=== PATIENT | female | born 1960 | race Caucasian/White ===

== ENCOUNTER → 2017-10-13 | Outpatient (CLI) | payer OTHER ==
[~2017-10-13] MED LIST: FLONASE ALLERG9.9 ML NAS; LISINOPRIL5 MG PO; MOBIC15 MG PO; MUCINEX1200 M1 PO; NAPROSYN500 MG PO; PREDNISONE10 MG PO; ROBAXIN750 MG PO; ROBITUSSIN DM 105 ML PO; SYNTHROID,LEV200 MCG PO; VENTOLIN H0.09 MG/AC INH
== END | disposition home or self-care (01) ==
LOC: MAMMO 12:39
DX: Z12.31 Encounter for screening mammogram for malignant neoplasm of breast (principal)

== ENCOUNTER → 2017-10-14 | Outpatient (CLI) | payer OTHER | END | disposition home or self-care (01) | LOC: US 04:02 | DX: M79.604 Pain in right leg (principal); M79.605 Pain in left leg; I10 Essential (primary) hypertension; R20.0 Anesthesia of skin ==

== ENCOUNTER → 2018-04-25 | Outpatient (CLI) | payer OTHER | END | disposition home or self-care (01) | LOC: CT 14:53 | DX: I71.4 Abdominal aortic aneurysm, without rupture (principal); K76.0 Fatty (change of) liver, not elsewhere classified; I70.0 Atherosclerosis of aorta; N83.8 Other noninflammatory disorders of ovary, fallopian tube and broad ligament ==

== ENCOUNTER 2019-12-02 13:06 | Emergency (ER) | payer OTHER ==
[~2019-12-02] VITALS: Ht 165.1 cm; Wt 136.1 kg
== END 2019-12-02 14:59 | disposition home or self-care (01) ==
LOC: ED 13:06
DX: S01.01XA Laceration without foreign body of scalp, initial encounter (principal); F17.200 Nicotine dependence, unspecified, uncomplicated; Z79.899 Other long term (current) drug therapy; W01.0XXA Fall on same level from slipping, tripping and stumbling without subsequent striking against object, initial encounter; Y93.89 Activity, other specified; Y92.89 Other specified places as the place of occurrence of the external cause; Y99.8 Other external cause status

== ENCOUNTER → 2020-05-02 | Outpatient (CLI) | payer OTHER ==
[2020-05-02 15:11] LABS: BASO # 0.1 10*3/uL (0.0-0.1); BASO % 0.8 % (0.0-1.0); EOS # 0.2 10*3/uL (0.0-0.4); EOS % 2.1 % (1.0-4.0); HEMATOCRIT 52.4 % (37.0-47.0); LYMPH # 2.4 10*3/uL (1.3-4.4); LYMPH % 27.8 % (27.0-41.0); MEAN CORPUSCULAR HGB 32.9 pg (27.0-31.0); MEAN CORPUSCULAR HGB CONC 32.6 g/dl (33.0-37.0); MEAN PLATELET VOLUME 10.2 fl (9.6-12.3); MONO # 0.7 10*3/uL (0.1-1.0); MONO % 8.4 % (3.0-9.0); NEUT # 5.2 10*3/uL (2.3-7.9); NEUT % 60.3 % (47.0-73.0); PLATELET COUNT AUTOMATED 236 10*3/uL (130-400); RED BLOOD COUNT 5.19 10*6/uL (4.10-5.10); RED CELL DISTRI WIDTH 13.1 % (0-14.5); RETICULOCYTE % 1.98 % (0.50-2.50); WHITE BLOOD COUNT 8.6 10*3/uL (4.8-10.8)
[2020-05-02 15:13] LABS: BILIRUBIN Negative (Negative); BLOOD Negative (Negative); CLARITY Clear (Clear); COLOR Yellow (Yellow); GLUCOSE Negative (Negative); KETONE Negative (Negative); LEUKO ESTERASE 1+ (Negative); NITRITE Negative (Negative); PH 5.5 (4.5-8.0); SPECIFIC GRAVITY <= 1.005 (1.001-1.030); UROBILINOGEN 0.2 E.U./dl (0.0-1.0)
[2020-05-02 15:21] LABS: BACTERIA 1+; RBC 0-2 rbc/hpf (0-2)
[2020-05-02 15:37] LABS: ALBUMIN 3.8 gm/dl (3.1-4.5); ALKALINE PHOSPHATASE 101 U/L (45-117); BUN 16 mg/dl (7-24); CHLORIDE 103 mmol/L (98-107); CHOLESTEROL 174 mg/dL (<200); CPK 155 U/L (26-192); CREATININE 0.77 mg/dL (0.55-1.02); GAMMA GLUTAMYL TRANSPEPTIDASE 16 U/L (5-55); HDL CHOLESTEROL 38 mg/dl (40-60); IRON 71 ug/dL (50-170); LDL CHOLESTEROL 106 mg/dL (9-159); POTASSIUM 3.8 mmol/L (3.5-5.1); SGOT/AST 9 IU/L (3-35); SGPT/ALT 19 U/L (12-78); SODIUM 140 mmol/L (136-145); THYROXINE (T4) TOTAL 11.8 ug/dl (4.8-13.9); TOTAL IRON BINDING CAPACITY 381 ug/dl (250-450); TOTAL PROTEIN 7.3 gm/dL (6.4-8.2); TRIGLYCERIDES 148 mg/dl (<150); VLDL CHOLESTEROL 30 mg/dL (6-40)
[2020-05-02 15:43] LABS: T3 UPTAKE 34 % (31-39)
[2020-05-02 16:20] LABS: VITAMIN D, 25-HYDROXY 36.1 ng/mL (30-100)
[2020-05-02 16:21] LABS: FERRITIN 127.2 ng/mL (10.0-291.0)
== END | disposition home or self-care (01) ==
LOC: LAB 14:45
PROVIDERS: ATTEND Family Medicine
DX: E55.9 Vitamin D deficiency, unspecified (principal); R79.89 Other specified abnormal findings of blood chemistry; R53.83 Other fatigue

== ENCOUNTER → 2020-10-29 | Outpatient (CLI) | payer OTHER ==
[2020-10-29 10:13] LABS: BASO # 0.1 10*3/uL (0.0-0.1); BASO % 0.9 % (0.0-1.0); EOS # 0.2 10*3/uL (0.0-0.4); EOS % 2.5 % (1.0-4.0); HEMATOCRIT 52.6 % (37.0-47.0); LYMPH # 2.1 10*3/uL (1.3-4.4); MEAN CELL VOLUME 101.7 fl (81.0-99.0); MEAN CORPUSCULAR HGB 33.7 pg (27.0-31.0); MEAN CORPUSCULAR HGB CONC 33.1 g/dl (33.0-37.0); MEAN PLATELET VOLUME 10.3 fl (9.6-12.3); MONO # 0.6 10*3/uL (0.1-1.0); MONO % 7.5 % (3.0-9.0); NEUT # 4.9 10*3/uL (2.3-7.9); NEUT % 62.6 % (47.0-73.0); PLATELET COUNT AUTOMATED 192 10*3/uL (130-400); RED BLOOD COUNT 5.17 10*6/uL (4.10-5.10); RED CELL DISTRI WIDTH 13.4 % (0-14.5); WHITE BLOOD COUNT 7.9 10*3/uL (4.8-10.8)
[2020-10-29 10:30] LABS: BILIRUBIN Negative (Negative); BLOOD Negative (Negative); CLARITY Clear (Clear); COLOR Yellow (Yellow); GLUCOSE Negative (Negative); KETONE Negative (Negative); LEUKO ESTERASE Negative (Negative); NITRITE Negative (Negative); SPECIFIC GRAVITY <= 1.005 (1.001-1.030); UROBILINOGEN 0.2 E.U./dl (0.0-1.0)
[2020-10-29 13:00] LABS: CHLORIDE 102 mmol/L (98-107); POTASSIUM 3.8 mmol/L (3.5-5.1); SODIUM 139 mmol/L (136-145)
[2020-10-29 13:08] LABS: BACTERIA TRACE; MUCOUS TRACE; WBC 0-2 wbc/hpf (0-5)
[2020-10-29 13:17] LABS: ALBUMIN 3.7 gm/dl (3.1-4.5); ALKALINE PHOSPHATASE 111 U/L (45-117); BUN 11 mg/dl (7-24); CHOLESTEROL 182 mg/dL (<200); CREATININE 0.67 mg/dL (0.55-1.02); GAMMA GLUTAMYL TRANSPEPTIDASE 11 U/L (5-55); IRON 120 ug/dL (50-170); LDL CHOLESTEROL 102 mg/dL (9-159); SGOT/AST 12 IU/L (3-35); SGPT/ALT 17 U/L (12-78); T3 UPTAKE 33 % (31-39); THYROXINE (T4) TOTAL 12.3 ug/dl (4.8-13.9); TOTAL IRON BINDING CAPACITY 382 ug/dl (250-450); TOTAL PROTEIN 7.3 gm/dL (6.4-8.2); TRIGLYCERIDES 232 mg/dl (<150)
== END | disposition home or self-care (01) ==
LOC: LAB 09:19
PROVIDERS: ATTEND Family Medicine
DX: M51.36 Other intervertebral disc degeneration, lumbar region (principal); E78.5 Hyperlipidemia, unspecified; R79.89 Other specified abnormal findings of blood chemistry; R53.83 Other fatigue; M19.90 Unspecified osteoarthritis, unspecified site; R74.8 Abnormal levels of other serum enzymes; M85.88 Other specified disorders of bone density and structure, other site

== ENCOUNTER → 2020-11-14 | Outpatient (CLI) | payer OTHER | END | disposition home or self-care (01) | LOC: RAD 08:25 | PROVIDERS: ATTEND Family Medicine | DX: M43.16 Spondylolisthesis, lumbar region (principal); M48.061 Spinal stenosis, lumbar region without neurogenic claudication; M53.86 Other specified dorsopathies, lumbar region; M51.37 Other intervertebral disc degeneration, lumbosacral region ==

== ENCOUNTER → 2020-11-17 | Outpatient (CLI) | payer OTHER | END | disposition home or self-care (01) | LOC: MRI 00:24 | PROVIDERS: ATTEND Family Medicine | DX: M16.0 Bilateral primary osteoarthritis of hip (principal); M25.452 Effusion, left hip; M25.451 Effusion, right hip; M71.351 Other bursal cyst, right hip; M71.352 Other bursal cyst, left hip ==

== ENCOUNTER → 2021-08-11 | Outpatient (CLI) | payer OTHER ==
[2021-08-11 09:41] LABS: BASO # 0.1 10*3/uL (0.0-0.1); BASO % 1.1 % (0.0-1.0); EOS # 0.1 10*3/uL (0.0-0.4); EOS % 1.3 % (1.0-4.0); HEMATOCRIT 48.3 % (37.0-47.0); LYMPH % 26.3 % (27.0-41.0); MEAN CELL VOLUME 107.1 fl (81.0-99.0); MEAN CORPUSCULAR HGB 34.6 pg (27.0-31.0); MEAN CORPUSCULAR HGB CONC 32.3 g/dl (33.0-37.0); MONO # 0.6 10*3/uL (0.1-1.0); MONO % 8.5 % (3.0-9.0); NEUT # 4.7 10*3/uL (2.3-7.9); NEUT % 61.9 % (47.0-73.0); NUCLEATED RED BLOOD CELL 0.1 10*3/uL (0.0-0.0); NUCLEATED RED BLOOD CELL 0.8 % (0.0-0.0); PLATELET COUNT AUTOMATED 209 10*3/uL (130-400); RED BLOOD COUNT 4.51 10*6/uL (4.10-5.10); RED CELL DISTRI WIDTH 15.2 % (0-14.5); RETICULOCYTE % 4.24 % (0.50-2.50); WHITE BLOOD COUNT 7.5 10*3/uL (4.8-10.8)
[2021-08-11 09:44] LABS: BILIRUBIN Negative (Negative); BLOOD Negative (Negative); CLARITY Clear (Clear); COLOR Yellow (Yellow); GLUCOSE Negative (Negative); KETONE Negative (Negative); LEUKO ESTERASE 2+ (Negative); NITRITE Negative (Negative); PH 6.5 (4.5-8.0); SPECIFIC GRAVITY <= 1.005 (1.001-1.030); UROBILINOGEN 0.2 E.U./dl (0.0-1.0)
[2021-08-11 10:32] LABS: ALKALINE PHOSPHATASE 118 U/L (45-117); BUN 19 mg/dl (7-24); CHLORIDE 108 mmol/L (98-107); CHOLESTEROL 155 mg/dL (<200); CREATININE 0.69 mg/dL (0.55-1.02); GAMMA GLUTAMYL TRANSPEPTIDASE 10 U/L (5-55); IRON 74 ug/dL (50-170); LDL CHOLESTEROL 104 mg/dL (9-159); POTASSIUM 4.7 mmol/L (3.5-5.1); SGOT/AST 18 IU/L (3-35); SGPT/ALT 28 U/L (12-78); SODIUM 141 mmol/L (136-145); T3 UPTAKE 34 % (31-39); THYROXINE (T4) TOTAL 13.7 ug/dl (4.8-13.9); TOTAL PROTEIN 7.1 gm/dL (6.4-8.2); TRIGLYCERIDES 90 mg/dl (<150)
[2021-08-11 10:39] LABS: TOTAL IRON BINDING CAPACITY 412 ug/dl (250-450)
[2021-08-11 11:04] LABS: BACTERIA 1+; WBC 21-30 wbc/hpf (0-5)
== END | disposition home or self-care (01) ==
LOC: LAB 09:19
PROVIDERS: ATTEND Family Medicine
DX: J43.9 Emphysema, unspecified (principal); R79.89 Other specified abnormal findings of blood chemistry; R53.83 Other fatigue; E11.9 Type 2 diabetes mellitus without complications; E55.9 Vitamin D deficiency, unspecified; E78.5 Hyperlipidemia, unspecified

== ENCOUNTER → 2021-08-14 | Outpatient (CLI) | payer OTHER | LOC: US 10:44 | PROVIDERS: ATTEND Family Medicine | DX: I71.4 Abdominal aortic aneurysm, without rupture (principal) ==

== ENCOUNTER → 2021-10-16 | Outpatient (CLI) | payer OTHER | END | disposition home or self-care (01) | LOC: US 10:05 | PROVIDERS: ATTEND Internal Medicine Cardiovascular Disease | DX: O24.111 Pre-existing type 2 diabetes mellitus, in pregnancy, first trimester (principal); I70.203 Unspecified atherosclerosis of native arteries of extremities, bilateral legs; Z3A.00 Weeks of gestation of pregnancy not specified ==

== ENCOUNTER → 2021-10-21 | Outpatient (CLI) | payer OTHER | END | disposition home or self-care (01) | LOC: CARD 01:35 | PROVIDERS: ATTEND Internal Medicine Cardiovascular Disease | DX: R06.02 Shortness of breath (principal) ==

== ENCOUNTER → 2021-12-29 | Outpatient (CLI) | payer MEDICAID ==
[2021-12-29 11:44] LABS: BASO # 0.1 10*3/uL (0.0-0.1); BILIRUBIN Negative (Negative); BLOOD Negative (Negative); CLARITY Clear (Clear); COLOR Yellow (Yellow); EOS # 0.2 10*3/uL (0.0-0.4); EOS % 2.5 % (1.0-4.0); GLUCOSE Negative (Negative); HEMATOCRIT 52.1 % (37.0-47.0); KETONE Negative (Negative); LEUKO ESTERASE Negative (Negative); LYMPH # 2.4 10*3/uL (1.3-4.4); MEAN CELL VOLUME 101.2 fl (81.0-99.0); MEAN CORPUSCULAR HGB CONC 33.6 g/dl (33.0-37.0); MEAN PLATELET VOLUME 10.2 fl (9.6-12.3); MONO # 0.7 10*3/uL (0.1-1.0); MONO % 8.1 % (3.0-9.0); NEUT # 4.9 10*3/uL (2.3-7.9); NEUT % 58.8 % (47.0-73.0); NITRITE Negative (Negative); PH 5.5 (4.5-8.0); PLATELET COUNT AUTOMATED 225 10*3/uL (130-400); RED BLOOD COUNT 5.15 10*6/uL (4.10-5.10); RED CELL DISTRI WIDTH 13.3 % (0-14.5); RETICULOCYTE % 1.99 % (0.50-2.50); SPECIFIC GRAVITY <= 1.005 (1.001-1.030); UROBILINOGEN 0.2 E.U./dl (0.0-1.0); WHITE BLOOD COUNT 8.4 10*3/uL (4.8-10.8)
[2021-12-29 12:08] LABS: ALKALINE PHOSPHATASE 127 U/L (45-117); BUN 16 mg/dl (7-24); CHLORIDE 106 mmol/L (98-107); CHOLESTEROL 197 mg/dL (<200); CREATININE 0.74 mg/dL (0.55-1.02); GAMMA GLUTAMYL TRANSPEPTIDASE 12 U/L (5-55); IRON 108 ug/dL (50-170); LDL CHOLESTEROL 129 mg/dL (9-159); POTASSIUM 4.6 mmol/L (3.5-5.1); SGOT/AST 13 IU/L (3-35); SGPT/ALT 21 U/L (12-78); SODIUM 138 mmol/L (136-145); TOTAL PROTEIN 7.7 gm/dL (6.4-8.2); TRIGLYCERIDES 161 mg/dl (<150)
[2021-12-29 12:39] LABS: RBC 0-2 rbc/hpf (0-2)
== END | disposition home or self-care (01) ==
LOC: LAB 11:06
PROVIDERS: ATTEND Family Medicine
DX: E78.5 Hyperlipidemia, unspecified (principal); E55.9 Vitamin D deficiency, unspecified; R79.89 Other specified abnormal findings of blood chemistry; R53.83 Other fatigue

== ENCOUNTER → 2022-06-15 | Outpatient (CLI) | payer OTHER ==
[2022-06-15 10:24] LABS: BASO # 0.1 10*3/uL (0.0-0.1); EOS # 0.2 10*3/uL (0.0-0.4); EOS % 2.2 % (1.0-4.0); HEMATOCRIT 53.5 % (37.0-47.0); LYMPH # 2.1 10*3/uL (1.3-4.4); LYMPH % 31.1 % (27.0-41.0); MEAN CELL VOLUME 104.3 fl (81.0-99.0); MEAN CORPUSCULAR HGB 33.3 pg (27.0-31.0); MEAN PLATELET VOLUME 9.9 fl (9.6-12.3); MONO # 0.5 10*3/uL (0.1-1.0); MONO % 6.7 % (3.0-9.0); NEUT % 58.4 % (47.0-73.0); PLATELET COUNT AUTOMATED 213 10*3/uL (130-400); RED BLOOD COUNT 5.13 10*6/uL (4.10-5.10); RETICULOCYTE % 2.46 % (0.50-2.50); WHITE BLOOD COUNT 6.8 10*3/uL (4.8-10.8)
[2022-06-15 10:25] LABS: BILIRUBIN Negative (Negative); BLOOD Negative (Negative); CLARITY Clear (Clear); COLOR Yellow (Yellow); GLUCOSE Negative (Negative); KETONE Negative (Negative); LEUKO ESTERASE Negative (Negative); NITRITE Negative (Negative); SPECIFIC GRAVITY <= 1.005 (1.001-1.030); UROBILINOGEN 0.2 E.U./dl (0.0-1.0)
[2022-06-15 10:41] LABS: BACTERIA 1+
[2022-06-15 10:42] LABS: ALKALINE PHOSPHATASE 118 U/L (46-116); BUN 15 mg/dl (9-23); CHLORIDE 105 mmol/L (98-107); CHOLESTEROL 204 mg/dL (<200); GAMMA GLUTAMYL TRANSPEPTIDASE 15 U/L (0-73); LDL CHOLESTEROL 144 mg/dL (9-159); POTASSIUM 4.2 mmol/L (3.4-5.1); SGPT/ALT 12 U/L (10-49); THYROID STIM HORMONE (HS) 6.198 uIU/ml (0.550-4.780); TOTAL PROTEIN 6.9 gm/dL (6.0-8.0); TRIGLYCERIDES 145 mg/dl (<150)
== END | disposition home or self-care (01) ==
LOC: LAB 09:42
PROVIDERS: ATTEND Family Medicine
DX: E78.5 Hyperlipidemia, unspecified (principal); E55.9 Vitamin D deficiency, unspecified; R79.89 Other specified abnormal findings of blood chemistry; R53.83 Other fatigue; R74.8 Abnormal levels of other serum enzymes

== ENCOUNTER → 2022-10-06 | Outpatient (CLI) | payer OTHER | END | disposition home or self-care (01) | LOC: US 00:47 | PROVIDERS: ATTEND Family Medicine | DX: I71.40 Abdominal aortic aneurysm, without rupture, unspecified (principal) ==

== ENCOUNTER 2022-11-13 06:29 | Emergency (ER) | payer OTHER ==
[~2022-11-13] VITALS: Ht 165.1 cm; Wt 108.9 kg
[2022-11-13] MEDS ORDERED: LOPID600 M1 PO (06:42)
[2022-11-13] MEDS ORDERED: VITAMIN D31250 MC2 PO (06:43)
[2022-11-13] MEDS ORDERED: OMEPRAZOLE40 MG PO (06:43)
[2022-11-13] MEDS ORDERED: NAPROXEN D/R500 MG PO (06:44)
[2022-11-13] MEDS ORDERED: METFORMIN HYD1000 MG PO (06:44)
[2022-11-13] MEDS ORDERED: ASPIRIN ADULT L81 M1 PO (06:44)
[2022-11-13] MEDS ORDERED: SPIRIVA RESPIMAT4 GM INH (06:45)
[2022-11-13] MEDS ORDERED: SYMB160 INH (06:45)
[2022-11-13 07:08] LABS: BILIRUBIN Negative (Negative); BLOOD 3+ (Negative); CLARITY Cloudy (Clear); COLOR Yellow (Yellow); GLUCOSE Negative (Negative); KETONE Negative (Negative); LEUKO ESTERASE 3+ (Negative); NITRITE Positive (Negative); PH 5.5 (4.5-8.0); SPECIFIC GRAVITY <= 1.005 (1.001-1.030)
[2022-11-13] MEDS ORDERED: CIPRO500 MG PO (07:17)
[2022-11-13] MEDS ORDERED: DIFLUCAN150 MG PO (07:17)
[2022-11-13 07:25] LABS: BACTERIA 3+; RBC 21-30 rbc/hpf (0-2); WBC TNTC wbc/hpf (0-5)
== END 2022-11-13 07:44 | disposition home or self-care (01) ==
LOC: ED 06:29
PROVIDERS: Internal Medicine
DX: N39.0 Urinary tract infection, site not specified (principal); J44.9 Chronic obstructive pulmonary disease, unspecified; K21.9 Gastro-esophageal reflux disease without esophagitis; E78.5 Hyperlipidemia, unspecified; E11.9 Type 2 diabetes mellitus without complications; Z98.890 Other specified postprocedural states

== ENCOUNTER → 2022-12-15 | Outpatient (CLI) | payer OTHER ==
[~2022-12-15] MED LIST changes: +ASPIRIN ADULT L81 M1 PO; +CIPRO500 MG PO; +DIFLUCAN150 MG PO; +LOPID600 M1 PO; +METFORMIN HYD1000 MG PO; +NAPROXEN D/R500 MG PO; +OMEPRAZOLE40 MG PO; +SPIRIVA RESPIMAT4 GM INH; +SYMB160 INH; +VITAMIN D31250 MC2 PO
[2022-12-15 09:36] LABS: BASO # 0.1 10*3/uL (0.0-0.1); BASO % 1.1 % (0.0-1.0); EOS # 0.1 10*3/uL (0.0-0.4); EOS % 1.8 % (1.0-4.0); HEMATOCRIT 54.3 % (37.0-47.0); LYMPH # 1.8 10*3/uL (1.3-4.4); LYMPH % 29.8 % (27.0-41.0); MEAN CELL VOLUME 103.8 fl (81.0-99.0); MEAN CORPUSCULAR HGB 34.2 pg (27.0-31.0); MONO # 0.5 10*3/uL (0.1-1.0); MONO % 8.4 % (3.0-9.0); NEUT # 3.6 10*3/uL (2.3-7.9); NEUT % 58.4 % (47.0-73.0); PLATELET COUNT AUTOMATED 205 10*3/uL (130-400); RED BLOOD COUNT 5.23 10*6/uL (4.10-5.10); RED CELL DISTRI WIDTH 14.4 % (0-14.5); RETICULOCYTE % 2.56 % (0.50-2.50); WHITE BLOOD COUNT 6.1 10*3/uL (4.8-10.8)
[2022-12-15 09:37] LABS: BILIRUBIN Negative (Negative); BLOOD Negative (Negative); CLARITY Clear (Clear); COLOR Yellow (Yellow); GLUCOSE Negative (Negative); KETONE Negative (Negative); LEUKO ESTERASE Negative (Negative); NITRITE Negative (Negative); PH 6.5 (4.5-8.0); SPECIFIC GRAVITY <= 1.005 (1.001-1.030); UROBILINOGEN 0.2 E.U./dl (0.0-1.0)
[2022-12-15 10:26] LABS: ALKALINE PHOSPHATASE 110 U/L (46-116); BUN 12 mg/dl (9-23); CHLORIDE 104 mmol/L (98-107); CHOLESTEROL 169 mg/dL (<200); GAMMA GLUTAMYL TRANSPEPTIDASE 9 U/L (0-73); LDL CHOLESTEROL 108 mg/dL (9-159); POTASSIUM 4.4 mmol/L (3.4-5.1); SGPT/ALT 13 U/L (10-49); T3 UPTAKE 25.8 % (22.4-36.7); THYROXINE (T4) TOTAL 12.2 ug/dl (4.5-10.9); TOTAL PROTEIN 7.2 gm/dL (6.0-8.0); TRIGLYCERIDES 159 mg/dl (<150)
[2022-12-15 10:51] LABS: EPITHELIAL CELLS 0-2
== END | disposition home or self-care (01) ==
LOC: LAB 08:46
PROVIDERS: ATTEND Family Medicine
DX: E11.9 Type 2 diabetes mellitus without complications (principal); R79.89 Other specified abnormal findings of blood chemistry; R53.83 Other fatigue; E78.5 Hyperlipidemia, unspecified; E55.9 Vitamin D deficiency, unspecified

== ENCOUNTER → 2023-01-20 | Outpatient (CLI) | payer OTHER | END | disposition home or self-care (01) | LOC: CARD 11:39 | PROVIDERS: ATTEND Family Medicine | DX: D43.9 Neoplasm of uncertain behavior of central nervous system, unspecified (principal); I51.7 Cardiomegaly ==

== ENCOUNTER → 2023-06-14 | Outpatient (CLI) | payer OTHER ==
[2023-06-14 08:53] LABS: BILIRUBIN Negative (Negative); BLOOD Negative (Negative); CLARITY Clear (Clear); COLOR Yellow (Yellow); GLUCOSE Negative (Negative); KETONE Negative (Negative); LEUKO ESTERASE Negative (Negative); NITRITE Negative (Negative); PH 6.5 (4.5-8.0); SPECIFIC GRAVITY <= 1.005 (1.001-1.030); UROBILINOGEN 0.2 E.U./dl (0.0-1.0)
[2023-06-14 09:05] LABS: BASO # 0.1 10*3/uL (0.0-0.1); EOS # 0.2 10*3/uL (0.0-0.4); EOS % 2.5 % (1.0-4.0); HEMATOCRIT 48.6 % (37.0-47.0); LYMPH # 1.8 10*3/uL (1.3-4.4); LYMPH % 30.7 % (27.0-41.0); MEAN CELL VOLUME 103.2 fl (81.0-99.0); MEAN CORPUSCULAR HGB 34.2 pg (27.0-31.0); MEAN CORPUSCULAR HGB CONC 33.1 g/dl (33.0-37.0); MONO # 0.4 10*3/uL (0.1-1.0); MONO % 6.8 % (3.0-9.0); NEUT # 3.5 10*3/uL (2.3-7.9); NEUT % 58.7 % (47.0-73.0); PLATELET COUNT AUTOMATED 205 10*3/uL (130-400); RED BLOOD COUNT 4.71 10*6/uL (4.10-5.10); RED CELL DISTRI WIDTH 13.3 % (0-14.5); RETICULOCYTE % 2.46 % (0.50-2.50)
[2023-06-14 09:06] LABS: EPITHELIAL CELLS 0-2; WBC 0-2 wbc/hpf (0-5)
[2023-06-14 09:23] LABS: ALKALINE PHOSPHATASE 85 U/L (46-116); BUN 13 mg/dl (9-23); CHLORIDE 103 mmol/L (98-107); CHOLESTEROL 149 mg/dL (<200); CPK 83 U/L (34-171); GAMMA GLUTAMYL TRANSPEPTIDASE 14 U/L (0-73); LDL CHOLESTEROL 97 mg/dL (9-159); POTASSIUM 4.5 mmol/L (3.4-5.1); SGPT/ALT 11 U/L (5-49); T3 UPTAKE 26.2 % (22.4-36.7); THYROXINE (T4) TOTAL 11.4 ug/dl (4.5-10.9); TOTAL PROTEIN 7.2 gm/dL (6.0-8.0); TRIGLYCERIDES 92 mg/dl (<150)
[2023-06-14 09:25] LABS: VITAMIN D, 25-HYDROXY 42.7 ng/mL (30-100)
== END | disposition home or self-care (01) ==
LOC: LAB 08:18
PROVIDERS: ATTEND Family Medicine
DX: E11.9 Type 2 diabetes mellitus without complications (principal); E55.9 Vitamin D deficiency, unspecified; R74.8 Abnormal levels of other serum enzymes; R53.83 Other fatigue; R79.89 Other specified abnormal findings of blood chemistry

== ENCOUNTER → 2023-09-27 | Outpatient (CLI) | payer OTHER | END | disposition home or self-care (01) | LOC: US 01:18 | PROVIDERS: ATTEND Family Medicine | DX: I71.40 Abdominal aortic aneurysm, without rupture, unspecified (principal) ==

== ENCOUNTER → 2023-12-06 | Outpatient (CLI) | payer OTHER ==
[2023-12-06 10:04] LABS: BASO # 0.1 10*3/uL (0.0-0.1); BASO % 0.9 % (0.0-1.0); EOS # 0.2 10*3/uL (0.0-0.4); HEMATOCRIT 45.4 % (37.0-47.0); LYMPH % 29.8 % (27.0-41.0); MEAN CELL VOLUME 100.7 fl (81.0-99.0); MEAN CORPUSCULAR HGB 33.9 pg (27.0-31.0); MEAN CORPUSCULAR HGB CONC 33.7 g/dl (33.0-37.0); MONO # 0.5 10*3/uL (0.1-1.0); MONO % 7.5 % (3.0-9.0); NEUT # 3.9 10*3/uL (2.3-7.9); NEUT % 58.4 % (47.0-73.0); PLATELET COUNT AUTOMATED 219 10*3/uL (130-400); RED BLOOD COUNT 4.51 10*6/uL (4.10-5.10); RED CELL DISTRI WIDTH 13.1 % (0-14.5); RETICULOCYTE % 2.46 % (0.50-2.50); WHITE BLOOD COUNT 6.7 10*3/uL (4.8-10.8)
[2023-12-06 10:16] LABS: BILIRUBIN Negative (Negative); BLOOD Negative (Negative); CLARITY Clear (Clear); COLOR Yellow (Yellow); GLUCOSE Negative (Negative); KETONE Negative (Negative); LEUKO ESTERASE Negative (Negative); NITRITE Negative (Negative); PH 6.5 (4.5-8.0); SPECIFIC GRAVITY <= 1.005 (1.001-1.030); UROBILINOGEN 0.2 E.U./dl (0.0-1.0)
[2023-12-06 10:30] LABS: ALKALINE PHOSPHATASE 104 U/L (46-116); BUN 10 mg/dl (9-23); CHLORIDE 102 mmol/L (98-107); CHOLESTEROL 133 mg/dL (<200); GAMMA GLUTAMYL TRANSPEPTIDASE 12 U/L (0-73); LDL CHOLESTEROL 83 mg/dL (9-159); POTASSIUM 4.9 mmol/L (3.4-5.1); SGPT/ALT 11 U/L (5-49); THYROXINE (T4) TOTAL 13.4 ug/dl (4.5-10.9); TOTAL PROTEIN 6.9 gm/dL (6.0-8.0); TRIGLYCERIDES 78 mg/dl (<150)
[2023-12-06 11:44] LABS: BACTERIA TRACE; WBC 0-2 wbc/hpf (0-5)
== END | disposition home or self-care (01) ==
LOC: LAB 09:36
PROVIDERS: ATTEND Family Medicine
DX: E11.9 Type 2 diabetes mellitus without complications (principal); R53.83 Other fatigue; R79.89 Other specified abnormal findings of blood chemistry; E78.5 Hyperlipidemia, unspecified

== ENCOUNTER 2024-05-06 09:31 | Inpatient (IN) | payer OTHER ==
[2024-05-06] VITALS (34 sets, daily range): BP systolic 66–200; BP diastolic 35–77
[~2024-05-06] VITALS: Ht 170.2 cm; Wt 130.0 kg
[~2024-05-06 09:31] MED LIST changes: +COREG3.125 MG PO; +LASIX40 MG PO; +LEVOFLOXACIN750 M2 PO; +LEVOTHYROXINE200 MC3 PO; +LIPITOR40 MG PO; -SYNTHROID,LEV200 MCG PO
[2024-05-06 09:58] LABS: BASO # 0.1 10*3/uL (0.0-0.1); BASO % 0.5 % (0.0-1.0); EOS % 0.4 % (1.0-4.0); HEMATOCRIT 45.8 % (37.0-47.0); MEAN CELL VOLUME 103.9 fl (81.0-99.0); MEAN CORPUSCULAR HGB 33.1 pg (27.0-31.0); MEAN CORPUSCULAR HGB CONC 31.9 g/dl (33.0-37.0); MEAN PLATELET VOLUME 9.7 fl (9.6-12.3); MONO # 0.8 10*3/uL (0.1-1.0); NEUT # 8.3 10*3/uL (2.3-7.9); NEUT % 85.3 % (47.0-73.0); RED BLOOD COUNT 4.41 10*6/uL (4.10-5.10); RED CELL DISTRI WIDTH 14.8 % (0-14.5); WHITE BLOOD COUNT 9.8 10*3/uL (4.8-10.8)
[2024-05-06] MEDS ORDERED: ROCURONIUM BROMIDE 100 MG/10 ML VIAL IV ONE (10:00)
[2024-05-06] MEDS ORDERED: PROPOFOL 100 ML IV SCH (10:00)
[2024-05-06] MEDS ORDERED: ETOMIDATE 20 MG/10 ML VIAL IV ONE ×2 (10:00→16:20)
[2024-05-06 10:01] LABS: PLATELET COUNT AUTOMATED 244 10*3/uL (130-400)
[2024-05-06] MEDS ORDERED: FUROSEMIDE 40 MG/4 ML VIAL IV ONE (10:05)
[2024-05-06 10:32] LABS: POTASSIUM 5.2 mmol/L (3.4-5.1)
[2024-05-06] MEDS ORDERED: SODIUM CHLORIDE 0.9% 2,000 ML IV ONE (10:48)
[2024-05-06] MEDS ORDERED: NOREPINEPHRINE BITARTRATE/D5W 250 ML IV SCH (10:55)
[2024-05-06 10:57] LABS: ABG O2 SATURATION 99.4 % (94.0-98.0)
[2024-05-06 11:00] LABS: ABG BASE EXCESS -0.2 mmol/L (-2.0-3.0); ARTERIAL BLOOD GAS PO2 235.8 mmHg (83.0-108.0)
[2024-05-06 11:01] LABS: ARTERIAL BLOOD GAS PH 7.198 (7.350-7.450)
[2024-05-06] MEDS ORDERED: DEXMEDETOMIDINE IN 0.9 % NACL 100 ML IV SCH (11:10)
[2024-05-06] MEDS ORDERED: fentaNYL CITRATE 100 MCG/2 ML VIAL IV ONE (11:10)
[2024-05-06] MEDS ORDERED: SODIUM CHLORIDE 0.9% 1,000 ML IV ONE (11:40)
[2024-05-06] MEDS ORDERED: Albuterol Sulf/Ipratropium 3 ML VIAL NEB SCH (11:50)
[2024-05-06] MEDS ORDERED: Midazolam Hydrochloride 5 MG/5 ML VIAL IV PRN (11:55)
[2024-05-06] MEDS ORDERED: HEPARIN SODIUM 250 ML IV SCH (12:50)
[2024-05-06 14:11] LABS: ABG BASE EXCESS 0.2 mmol/L (-2.0-3.0); ABG O2 SATURATION 98.8 % (94.0-98.0); ARTERIAL BLOOD GAS PO2 144.3 mmHg (83.0-108.0)
[2024-05-06 14:13] LABS: ARTERIAL BLOOD GAS PH 7.25 (7.350-7.450)
[2024-05-06] MEDS ORDERED: LEVOTHYROXINE25 MCG PO (14:32)
[2024-05-06] MEDS ORDERED: ROCURONIUM BROMIDE 50 MG/5 ML SYRINGE IV ONE (16:20)
[2024-05-06] MEDS ORDERED: PROPOFOL 200 MG/20 ML VIAL IV ONE (16:20)
[2024-05-06] MEDS ORDERED: Pantoprazole Sodium 40 MG VIAL IV SCH (18:00)
[2024-05-06] MEDS ORDERED: Chlorhexidine Gluconate 15 ML MOUTHWASH T SCH (18:00)
[2024-05-06] MEDS ORDERED: methylPREDNISolone sod succ 125 MG VIAL IV SCH (18:00)
[2024-05-06 18:05] LABS: ARTERIAL BLOOD GAS PH 7.268 (7.350-7.450); ARTERIAL BLOOD GAS PO2 79.1 mmHg (83.0-108.0)
[2024-05-06 18:08] LABS: ABG BASE EXCESS 3.1 mmol/L (-2.0-3.0)
[2024-05-06] MEDS ORDERED: Albuterol Sulfate 2.5 MG/3 ML VIAL NEB PRN (18:10)
[2024-05-06] MEDS ORDERED: DEXMEDETOMIDINE HCL 1,000 MCG in SODIUM CHLORIDE 0.9% 240 ML IV SCH (19:00)
[2024-05-07] VITALS (8 sets, daily range): BP systolic 108–155; BP diastolic 43–90
[2024-05-07 05:28] LABS: ALKALINE PHOSPHATASE 66 U/L (46-116); BUN 28 mg/dl (9-23); CHLORIDE 101 mmol/L (98-107); POTASSIUM 4.4 mmol/L (3.4-5.1); SGPT/ALT 29 U/L (5-49)
[2024-05-07 06:37] LABS: BASO % 0.4 % (0.0-1.0); HEMATOCRIT 39.2 % (37.0-47.0); MEAN CELL VOLUME 102.3 fl (81.0-99.0); MEAN CORPUSCULAR HGB 33.4 pg (27.0-31.0); MEAN CORPUSCULAR HGB CONC 32.7 g/dl (33.0-37.0); MEAN PLATELET VOLUME 10.5 fl (9.6-12.3); MONO # 0.2 10*3/uL (0.1-1.0); MONO % 4.9 % (3.0-9.0); NEUT % 85.8 % (47.0-73.0); RED BLOOD COUNT 3.83 10*6/uL (4.10-5.10); WHITE BLOOD COUNT 4.7 10*3/uL (4.8-10.8)
[2024-05-07 07:26] LABS: ABG BASE EXCESS 2.4 mmol/L (-2.0-3.0); ABG O2 SATURATION 91.2 % (94.0-98.0); ARTERIAL BLOOD GAS PH 7.282 (7.350-7.450); ARTERIAL BLOOD GAS PO2 69.1 mmHg (83.0-108.0)
[2024-05-07 07:36] LABS: PLATELET COUNT AUTOMATED 168 10*3/uL (130-400)
[2024-05-07] MEDS ORDERED: ASPIRIN, CHEWABLE 81 MG TAB PO SCH (10:00)
[2024-05-07] MEDS ORDERED: Levothyroxine Sodium 25 MCG TAB PO SCH (10:00)
[2024-05-07] MEDS ORDERED: ATORVASTATIN CALCIUM 40 MG TABLET PO SCH (10:00)
[2024-05-07] MEDS ORDERED: ASPIRIN, CHEWABLE 81 MG TAB NG SCH (10:00)
[2024-05-07] MEDS ORDERED: CARVEDILOL 3.125 MG TAB PO SCH (10:00)
[2024-05-07] MEDS ORDERED: Levothyroxine Sodium 200 MCG TAB PO SCH (10:00)
[2024-05-07] MEDS ORDERED: GEMFIBROZIL 600 MG TAB PO SCH (10:00)
[2024-05-07] MEDS ORDERED: Albuterol Sulf/Ipratropium 3 ML VIAL NEB SCH (11:50)
[2024-05-07] MEDS ORDERED: Phosphorus/Potassium 1.45 GM PACKET PO SCH (12:00)
[2024-05-07] MEDS ORDERED: FOAM BANDAGE 1 EACH BANDAGE T ONE (14:23)
[2024-05-07] MEDS ORDERED: DEXMEDETOMIDINE IN 0.9 % NACL 100 ML IV SCH (21:00)
[2024-05-08] VITALS (7 sets, daily range): BP systolic 109–145; BP diastolic 41–54
[2024-05-08 05:21] LABS: BUN 30 mg/dl (9-23); CHLORIDE 100 mmol/L (98-107); POTASSIUM 4.5 mmol/L (3.4-5.1)
[2024-05-08 06:38] LABS: BASO % 0.1 % (0.0-1.0); HEMATOCRIT 39.5 % (37.0-47.0); MEAN CELL VOLUME 101.5 fl (81.0-99.0); MEAN CORPUSCULAR HGB 32.9 pg (27.0-31.0); MEAN CORPUSCULAR HGB CONC 32.4 g/dl (33.0-37.0); MEAN PLATELET VOLUME 10.6 fl (9.6-12.3); MONO # 0.3 10*3/uL (0.1-1.0); MONO % 4.5 % (3.0-9.0); NEUT # 6.2 10*3/uL (2.3-7.9); NEUT % 87.1 % (47.0-73.0); PLATELET COUNT AUTOMATED 186 10*3/uL (130-400); RED BLOOD COUNT 3.89 10*6/uL (4.10-5.10); WHITE BLOOD COUNT 7.1 10*3/uL (4.8-10.8)
[2024-05-08] MEDS ORDERED: DEXTROSE 10 % IN WATER 250 ML IV PRN (07:20)
[2024-05-08] MEDS ORDERED: INSULIN LISPRO 1 UNIT/0.01 ML SQ SCH (07:30)
[2024-05-08 08:08] LABS: ABG O2 SATURATION 94.4 % (94.0-98.0); ARTERIAL BLOOD GAS PH 7.288 (7.350-7.450); ARTERIAL BLOOD GAS PO2 75.9 mmHg (83.0-108.0)
[2024-05-08] MEDS ORDERED: Piperacillin Sodium/Tazobact 50 ML IV SCH (12:00)
[2024-05-08] MEDS ORDERED: VANCOMYCIN/WATER FOR INJ (PEG) 400 ML IV SCH (13:00)
[2024-05-08] MEDS ORDERED: methylPREDNISolone sod succ 125 MG VIAL IV SCH (14:00)
[2024-05-08 15:24] LABS: ABG O2 SATURATION 93.6 % (94.0-98.0); ARTERIAL BLOOD GAS PH 7.349 (7.350-7.450); ARTERIAL BLOOD GAS PO2 68.8 mmHg (83.0-108.0)
[2024-05-08] MEDS ORDERED: Insulin Glargine, Recombinan 1 UNIT/0.01 ML SC SCH (22:00)
[2024-05-09] VITALS: BP 146/43
[2024-05-09 04:00] VITALS: BP 141/47
[2024-05-09 06:26] LABS: BASO % 0.2 % (0.0-1.0); HEMATOCRIT 41.1 % (37.0-47.0); MEAN CELL VOLUME 103.3 fl (81.0-99.0); MEAN CORPUSCULAR HGB 32.4 pg (27.0-31.0); MEAN CORPUSCULAR HGB CONC 31.4 g/dl (33.0-37.0); MEAN PLATELET VOLUME 10.7 fl (9.6-12.3); MONO # 0.3 10*3/uL (0.1-1.0); NEUT % 80.5 % (47.0-73.0); PLATELET COUNT AUTOMATED 185 10*3/uL (130-400); RED BLOOD COUNT 3.98 10*6/uL (4.10-5.10); RED CELL DISTRI WIDTH 13.4 % (0-14.5); WHITE BLOOD COUNT 6.2 10*3/uL (4.8-10.8)
[2024-05-09 06:51] LABS: BUN 31 mg/dl (9-23); CHLORIDE 100 mmol/L (98-107); POTASSIUM 4.3 mmol/L (3.4-5.1)
[2024-05-09 08:00] VITALS: BP 158/54
[2024-05-09] MEDS ORDERED: AZITHROMYCIN 250 ML IV SCH (10:00)
[2024-05-09] MEDS ORDERED: Ceftriaxone Sodium 1 GM in SYRINGE INFUSION 10 ML IV SCH (10:00)
[2024-05-09] MEDS ORDERED: Enoxaparin Sodium 40 MG/0.4 ML SYR SC SCH (10:00)
[2024-05-09] MEDS ORDERED: ACETAMINOPHEN 160 MG NG ONE (10:35)
[2024-05-09] MEDS ORDERED: ACETAMINOPHEN 325 MG TAB PO PRN (10:45)
[2024-05-09 10:46] LABS: ARTERIAL BLOOD GAS PH 7.366 (7.350-7.450); ARTERIAL BLOOD GAS PO2 78.8 mmHg (83.0-108.0)
[2024-05-09 10:48] LABS: ABG BASE EXCESS 10.3 mmol/L (-2.0-3.0)
[2024-05-09] MEDS ORDERED: ACETAMINOPHEN 325 MG TAB PO ONE (10:50)
[2024-05-09] MEDS ORDERED: ACETAMINOPHEN 325 MG/10.15 ML UDC PO ONE (10:50)
[2024-05-09 12:00] VITALS: BP 153/58
[2024-05-09] MEDS ORDERED: Ketorolac Tromethamine 15 MG/ML VIAL IV ONE (13:30)
[2024-05-09 16:00] VITALS: BP 176/73
[2024-05-09] MEDS ORDERED: INSULIN LISPRO 1 UNIT/0.01 ML SQ SCH (16:30)
[2024-05-09 20:00] VITALS: BP 166/62
[2024-05-09] MEDS ORDERED: Insulin Glargine, Recombinan 1 UNIT/0.01 ML SC SCH (22:00)
[2024-05-09] MEDS ORDERED: LISINOPRIL 10 MG TAB PO SCH (22:00)
[2024-05-10] VITALS: BP 150/64
[2024-05-10 04:00] VITALS: BP 182/79
[2024-05-10] MEDS ORDERED: hydrALAZINE hydrochloride 20 MG/ML VIAL IV ONE ×2 (06:10→12:35)
[2024-05-10 06:16] LABS: HEMATOCRIT 40.9 % (37.0-47.0); MEAN CELL VOLUME 101.7 fl (81.0-99.0); MEAN CORPUSCULAR HGB 32.3 pg (27.0-31.0); MEAN CORPUSCULAR HGB CONC 31.8 g/dl (33.0-37.0); PLATELET COUNT AUTOMATED 184 10*3/uL (130-400); RED BLOOD COUNT 4.02 10*6/uL (4.10-5.10); RED CELL DISTRI WIDTH 13.4 % (0-14.5); WHITE BLOOD COUNT 6.3 10*3/uL (4.8-10.8)
[2024-05-10 06:27] LABS: MANUAL DIFF REFLEX YES
[2024-05-10 06:29] LABS: BUN 31 mg/dl (9-23); CHLORIDE 100 mmol/L (98-107); POTASSIUM 4.8 mmol/L (3.4-5.1)
[2024-05-10 07:25] LABS: ATYPICAL LYMPHS 2 % (0-0); PLATELET SUFFICIENCY NORMAL (NORMAL); POLYCHROMASIA SLIGHT; TOTAL CELLS COUNTED 100 #CELLS
[2024-05-10 08:00] VITALS: BP 179/77
[2024-05-10 12:00] VITALS: BP 174/77
[2024-05-10 14:06] VITALS: BP 153/59
[2024-05-10 20:00] VITALS: BP 155/46
[2024-05-10] MEDS ORDERED: LISINOPRIL 20 MG TAB PO SCH (22:00)
[2024-05-11] VITALS: BP 154/60
[2024-05-11 04:00] VITALS: BP 187/78
[2024-05-11] MEDS ORDERED: hydrALAZINE hydrochloride 20 MG/ML VIAL IV ONE (04:20)
[2024-05-11 06:05] LABS: BASO % 0.3 % (0.0-1.0); HEMATOCRIT 42.6 % (37.0-47.0); MEAN CELL VOLUME 103.1 fl (81.0-99.0); MEAN CORPUSCULAR HGB 32.4 pg (27.0-31.0); MEAN CORPUSCULAR HGB CONC 31.5 g/dl (33.0-37.0); MEAN PLATELET VOLUME 10.2 fl (9.6-12.3); MONO # 0.3 10*3/uL (0.1-1.0); MONO % 4.6 % (3.0-9.0); NEUT # 5.7 10*3/uL (2.3-7.9); PLATELET COUNT AUTOMATED 188 10*3/uL (130-400); RED BLOOD COUNT 4.13 10*6/uL (4.10-5.10); RED CELL DISTRI WIDTH 13.5 % (0-14.5)
[2024-05-11 06:24] LABS: CHLORIDE 95 mmol/L (98-107); POTASSIUM 5.1 mmol/L (3.4-5.1)
[2024-05-11 06:40] LABS: BUN 21 mg/dl (9-23)
[2024-05-11 08:00] VITALS: BP 173/67
[2024-05-11 12:00] VITALS: BP 145/50
[2024-05-11] MEDS ORDERED: LEPTOSPERMUM HONEY 4 X 5 INCH WOUND DRESSING T ONE (12:19)
[2024-05-11] MEDS ORDERED: LEPTOSPERMUM HONEY 0.5 OZ TUBE T ONE (12:19)
[2024-05-11 20:00] VITALS: BP 153/83
[2024-05-11] MEDS ORDERED: methylPREDNISolone sod succ 125 MG VIAL IV SCH (22:00)
[2024-05-12] VITALS: BP 145/64
[2024-05-12 06:16] LABS: BASO % 0.3 % (0.0-1.0); EOS % 0.1 % (1.0-4.0); HEMATOCRIT 44.5 % (37.0-47.0); MEAN CELL VOLUME 100.9 fl (81.0-99.0); MEAN CORPUSCULAR HGB 32.2 pg (27.0-31.0); MEAN CORPUSCULAR HGB CONC 31.9 g/dl (33.0-37.0); MEAN PLATELET VOLUME 10.2 fl (9.6-12.3); MONO # 0.3 10*3/uL (0.1-1.0); MONO % 4.2 % (3.0-9.0); NEUT # 6.5 10*3/uL (2.3-7.9); NEUT % 82.9 % (47.0-73.0); PLATELET COUNT AUTOMATED 215 10*3/uL (130-400); RED BLOOD COUNT 4.41 10*6/uL (4.10-5.10); RED CELL DISTRI WIDTH 13.4 % (0-14.5); WHITE BLOOD COUNT 7.9 10*3/uL (4.8-10.8)
[2024-05-12 07:37] LABS: BUN 19 mg/dl (9-23); CHLORIDE 94 mmol/L (98-107)
[2024-05-12 08:00] VITALS: BP 148/47
[2024-05-12] MEDS ORDERED: GUAIFENESIN 600 MG TAB ER PO SCH (11:45)
[2024-05-12 12:00] VITALS: BP 139/68
[2024-05-12 16:00] VITALS: BP 142/63
[2024-05-12 20:00] VITALS: BP 149/60
[2024-05-12] MEDS ORDERED: methylPREDNISolone sod succ 40 MG VIAL IV SCH (22:00)
[2024-05-13] VITALS: BP 144/58
[2024-05-13 06:05] LABS: BUN 18 mg/dl (9-23); CHLORIDE 94 mmol/L (98-107); POTASSIUM 5.5 mmol/L (3.4-5.1)
[2024-05-13 06:07] LABS: BASO % 0.1 % (0.0-1.0); EOS % 0.1 % (1.0-4.0); HEMATOCRIT 43.2 % (37.0-47.0); MEAN CELL VOLUME 100.9 fl (81.0-99.0); MEAN CORPUSCULAR HGB CONC 31.7 g/dl (33.0-37.0); MONO # 0.4 10*3/uL (0.1-1.0); MONO % 4.8 % (3.0-9.0); NEUT # 7.2 10*3/uL (2.3-7.9); NEUT % 84.6 % (47.0-73.0); PLATELET COUNT AUTOMATED 212 10*3/uL (130-400); RED BLOOD COUNT 4.28 10*6/uL (4.10-5.10); RED CELL DISTRI WIDTH 13.4 % (0-14.5); WHITE BLOOD COUNT 8.6 10*3/uL (4.8-10.8)
[2024-05-13] MEDS ORDERED: acetaZOLAMIDE 250 MG TAB PO ONE (06:25)
[2024-05-13] MEDS ORDERED: SODIUM POLYSTYRENE SULFONATE 15 GM/60 ML BOT PO ONE (06:25)
[2024-05-13 08:00] VITALS: BP 109/44
[2024-05-13 12:00] VITALS: BP 139/51
[2024-05-13 16:00] VITALS: BP 137/65
[2024-05-13] MEDS ORDERED: FOAM BANDAGE 1 EACH BANDAGE T ONE (16:08)
[2024-05-13 20:00] VITALS: BP 110/42
[2024-05-14] VITALS: BP 129/49
[2024-05-14 05:25] LABS: BUN 21 mg/dl (9-23); CHLORIDE 98 mmol/L (98-107); POTASSIUM 4.8 mmol/L (3.4-5.1)
[2024-05-14 06:05] LABS: BASO % 0.1 % (0.0-1.0); EOS % 0.1 % (1.0-4.0); HEMATOCRIT 42.6 % (37.0-47.0); MEAN CELL VOLUME 102.4 fl (81.0-99.0); MEAN CORPUSCULAR HGB 32.2 pg (27.0-31.0); MEAN CORPUSCULAR HGB CONC 31.5 g/dl (33.0-37.0); MEAN PLATELET VOLUME 10.4 fl (9.6-12.3); MONO # 0.4 10*3/uL (0.1-1.0); MONO % 4.5 % (3.0-9.0); NEUT # 8.5 10*3/uL (2.3-7.9); NEUT % 86.4 % (47.0-73.0); PLATELET COUNT AUTOMATED 217 10*3/uL (130-400); RED BLOOD COUNT 4.16 10*6/uL (4.10-5.10); RED CELL DISTRI WIDTH 13.4 % (0-14.5); WHITE BLOOD COUNT 9.8 10*3/uL (4.8-10.8)
[2024-05-14] MEDS ORDERED: Regadenoson 0.4 MG/5 ML SYR IV ONE (06:22)
[2024-05-14 12:00] VITALS: BP 130/56
[2024-05-14] MEDS ORDERED: LISINOPRIL20 MG PO (16:18)
[2024-05-14] MEDS ORDERED: Ipratropium Brom3 ML NEB (16:18)
[2024-05-14] MEDS ORDERED: NEBULIZER INH (16:19)
== END 2024-05-14 16:30 | disposition home health service (06) | DRG 208 ==
LOC: ED 09:31 → ICCU 10:42 → EDHOLD 10:42 → ICCU 11:13 → 4E 05-11 15:52
PROVIDERS: Emergency Medicine; Student in an Organized Health Care Education/Training Program; ADMIT Student in an Organized Health Care Education/Training Program; ATTEND Student in an Organized Health Care Education/Training Program
PROC: 5A1945Z Respiratory Ventilation, 24-96 Consecutive Hours (ICD-10-PCS; principal; 2024-05-06)
PROC: 0BH17EZ Insertion of Endotracheal Airway into Trachea, Via Natural or Artificial Opening (ICD-10-PCS; 2024-05-06)
PROC: 02HV33Z Insertion of Infusion Device into Superior Vena Cava, Percutaneous Approach (ICD-10-PCS; 2024-05-06)
PROC: B548ZZA Ultrasonography of Superior Vena Cava, Guidance (ICD-10-PCS; 2024-05-06)
PROC: 5A09357 Assistance with Respiratory Ventilation, Less than 24 Consecutive Hours, Continuous Positive Airway Pressure (ICD-10-PCS; 2024-05-09)
PROC: 5A09357 Assistance with Respiratory Ventilation, Less than 24 Consecutive Hours, Continuous Positive Airway Pressure (ICD-10-PCS; 2024-05-10)
PROC: 5A09357 Assistance with Respiratory Ventilation, Less than 24 Consecutive Hours, Continuous Positive Airway Pressure (ICD-10-PCS; 2024-05-11)
DX: J96.21 Acute and chronic respiratory failure with hypoxia (principal); I21.4 Non-ST elevation (NSTEMI) myocardial infarction; I50.33 Acute on chronic diastolic (congestive) heart failure; J15.69 Pneumonia due to other Gram-negative bacteria; N17.0 Acute kidney failure with tubular necrosis; I13.0 Hypertensive heart and chronic kidney disease with heart failure and stage 1 through stage 4 chronic kidney disease, or unspecified chronic kidney disease; J44.1 Chronic obstructive pulmonary disease with (acute) exacerbation; E87.29 Other acidosis; E44.0 Moderate protein-calorie malnutrition; J44.0 Chronic obstructive pulmonary disease with (acute) lower respiratory infection; N18.4 Chronic kidney disease, stage 4 (severe); Z68.41 Body mass index [BMI] 40.0-44.9, adult; J96.22 Acute and chronic respiratory failure with hypercapnia; J20.5 Acute bronchitis due to respiratory syncytial virus; E78.49 Other hyperlipidemia; K21.9 Gastro-esophageal reflux disease without esophagitis; E03.9 Hypothyroidism, unspecified; D75.89 Other specified diseases of blood and blood-forming organs; E87.5 Hyperkalemia; E11.65 Type 2 diabetes mellitus with hyperglycemia; I95.9 Hypotension, unspecified; Z66 Do not resuscitate; Z20.822 Contact with and (suspected) exposure to COVID-19; G47.33 Obstructive sleep apnea (adult) (pediatric); E66.01 Morbid (severe) obesity due to excess calories; E11.22 Type 2 diabetes mellitus with diabetic chronic kidney disease; Z82.49 Family history of ischemic heart disease and other diseases of the circulatory system

== ENCOUNTER → 2024-05-17 | Outpatient (CLI) | payer OTHER ==
[~2024-05-17] MED LIST changes: +Ipratropium Brom3 ML NEB; +LEVOTHYROXINE25 MCG PO; +LISINOPRIL20 MG PO; +NEBULIZER INH
== END | disposition home or self-care (01) ==
LOC: WOUNDCARE 02:22
PROVIDERS: ATTEND Nurse Practitioner Family
DX: L89.312 Pressure ulcer of right buttock, stage 2 (principal); L89.322 Pressure ulcer of left buttock, stage 2; I11.0 Hypertensive heart disease with heart failure; I50.9 Heart failure, unspecified; E78.5 Hyperlipidemia, unspecified; E03.9 Hypothyroidism, unspecified; E11.9 Type 2 diabetes mellitus without complications; K21.9 Gastro-esophageal reflux disease without esophagitis; J44.9 Chronic obstructive pulmonary disease, unspecified; Z90.49 Acquired absence of other specified parts of digestive tract; Z98.890 Other specified postprocedural states; Z87.891 Personal history of nicotine dependence; Z79.84 Long term (current) use of oral hypoglycemic drugs; Z79.82 Long term (current) use of aspirin; Z79.899 Other long term (current) drug therapy

== ENCOUNTER → 2024-05-21 | Outpatient (CLI) | payer OTHER ==
[2024-05-21 15:02] LABS: BILIRUBIN Negative (Negative); BLOOD Negative (Negative); CLARITY Clear (Clear); COLOR Yellow (Yellow); GLUCOSE Negative (Negative); KETONE Negative (Negative); LEUKO ESTERASE Negative (Negative); NITRITE Negative (Negative); UROBILINOGEN 0.2 E.U./dl (0.0-1.0)
[2024-05-21 15:03] LABS: BASO % 0.5 % (0.0-1.0); EOS # 0.2 10*3/uL (0.0-0.4); EOS % 2.4 % (1.0-4.0); HEMATOCRIT 36.5 % (37.0-47.0); MEAN CELL VOLUME 99.7 fl (81.0-99.0); MEAN CORPUSCULAR HGB 32.5 pg (27.0-31.0); MEAN CORPUSCULAR HGB CONC 32.6 g/dl (33.0-37.0); MEAN PLATELET VOLUME 10.9 fl (9.6-12.3); MONO # 0.9 10*3/uL (0.1-1.0); MONO % 11.2 % (3.0-9.0); NEUT # 4.9 10*3/uL (2.3-7.9); NEUT % 62.4 % (47.0-73.0); PLATELET COUNT AUTOMATED 194 10*3/uL (130-400); RED BLOOD COUNT 3.66 10*6/uL (4.10-5.10); RED CELL DISTRI WIDTH 13.8 % (0-14.5); RETICULOCYTE % 1.53 % (0.50-2.50); WHITE BLOOD COUNT 7.8 10*3/uL (4.8-10.8)
[2024-05-21 15:24] LABS: BACTERIA TRACE; RBC 0-2 rbc/hpf (0-2)
[2024-05-21 15:33] LABS: POTASSIUM 3.9 mmol/L (3.4-5.1); TOTAL PROTEIN 6.4 gm/dL (6.0-8.0)
== END | disposition home or self-care (01) ==
LOC: LAB 14:03
PROVIDERS: ATTEND Family Medicine
DX: R79.89 Other specified abnormal findings of blood chemistry (principal); R53.83 Other fatigue; E78.5 Hyperlipidemia, unspecified; E55.9 Vitamin D deficiency, unspecified

== ENCOUNTER → 2024-05-24 | Outpatient (CLI) | payer OTHER | END | disposition home or self-care (01) | LOC: WOUNDCARE 01:56 | PROVIDERS: ATTEND Nurse Practitioner Family | DX: L89.312 Pressure ulcer of right buttock, stage 2 (principal); L89.322 Pressure ulcer of left buttock, stage 2; I11.0 Hypertensive heart disease with heart failure; I50.9 Heart failure, unspecified; E11.9 Type 2 diabetes mellitus without complications; E78.5 Hyperlipidemia, unspecified; E03.9 Hypothyroidism, unspecified; K21.9 Gastro-esophageal reflux disease without esophagitis; J44.9 Chronic obstructive pulmonary disease, unspecified; Z87.891 Personal history of nicotine dependence; Z90.49 Acquired absence of other specified parts of digestive tract; Z98.890 Other specified postprocedural states; Z79.84 Long term (current) use of oral hypoglycemic drugs; Z79.899 Other long term (current) drug therapy ==

== ENCOUNTER → 2024-06-01 | Outpatient (CLI) | payer OTHER | END | disposition home or self-care (01) | LOC: WOUNDCARE 00:22 | PROVIDERS: ATTEND Nurse Practitioner Family | DX: L89.312 Pressure ulcer of right buttock, stage 2 (principal); L89.322 Pressure ulcer of left buttock, stage 2; I11.0 Hypertensive heart disease with heart failure; I50.9 Heart failure, unspecified; E11.9 Type 2 diabetes mellitus without complications; I25.2 Old myocardial infarction; E78.5 Hyperlipidemia, unspecified; E03.9 Hypothyroidism, unspecified; K21.9 Gastro-esophageal reflux disease without esophagitis; J44.9 Chronic obstructive pulmonary disease, unspecified; Z87.891 Personal history of nicotine dependence; Z90.49 Acquired absence of other specified parts of digestive tract; Z98.890 Other specified postprocedural states; Z79.84 Long term (current) use of oral hypoglycemic drugs; Z79.82 Long term (current) use of aspirin; Z79.899 Other long term (current) drug therapy ==

== ENCOUNTER → 2024-06-08 | Outpatient (CLI) | payer OTHER | END | disposition home or self-care (01) | LOC: WOUNDCARE 01:46 | PROVIDERS: ATTEND Nurse Practitioner Family | DX: L89.322 Pressure ulcer of left buttock, stage 2 (principal); L89.312 Pressure ulcer of right buttock, stage 2; I11.0 Hypertensive heart disease with heart failure; I50.9 Heart failure, unspecified; E11.9 Type 2 diabetes mellitus without complications; I25.2 Old myocardial infarction; E78.5 Hyperlipidemia, unspecified; E03.9 Hypothyroidism, unspecified; K21.9 Gastro-esophageal reflux disease without esophagitis; J44.9 Chronic obstructive pulmonary disease, unspecified; Z87.891 Personal history of nicotine dependence; Z90.49 Acquired absence of other specified parts of digestive tract; Z98.890 Other specified postprocedural states; Z79.84 Long term (current) use of oral hypoglycemic drugs; Z79.82 Long term (current) use of aspirin; Z79.899 Other long term (current) drug therapy ==

== ENCOUNTER → 2024-09-27 | Outpatient (CLI) | payer OTHER ==
[2024-09-27 09:59] LABS: BASO # 0.1 10*3/uL (0.0-0.1); BASO % 1.1 % (0.0-1.0); EOS # 0.2 10*3/uL (0.0-0.4); EOS % 2.9 % (1.0-4.0); HEMATOCRIT 40.3 % (37.0-47.0); MEAN CELL VOLUME 99.5 fl (81.0-99.0); MEAN CORPUSCULAR HGB 33.6 pg (27.0-31.0); MEAN CORPUSCULAR HGB CONC 33.7 g/dl (33.0-37.0); MEAN PLATELET VOLUME 9.9 fl (9.6-12.3); MONO # 0.6 10*3/uL (0.1-1.0); MONO % 8.4 % (3.0-9.0); NEUT # 3.8 10*3/uL (2.3-7.9); NEUT % 56.9 % (47.0-73.0); PLATELET COUNT AUTOMATED 222 10*3/uL (130-400); RED BLOOD COUNT 4.05 10*6/uL (4.10-5.10); RED CELL DISTRI WIDTH 13.4 % (0-14.5); WHITE BLOOD COUNT 6.7 10*3/uL (4.8-10.8)
[2024-09-27 10:11] LABS: BILIRUBIN Negative (Negative); BLOOD Negative (Negative); CLARITY Clear (Clear); COLOR Yellow (Yellow); GLUCOSE Negative (Negative); KETONE Negative (Negative); LEUKO ESTERASE Negative (Negative); NITRITE Negative (Negative); PH 5.5 (4.5-8.0); SPECIFIC GRAVITY <= 1.005 (1.001-1.030); UROBILINOGEN 0.2 E.U./dl (0.0-1.0)
[2024-09-27 10:43] LABS: ALKALINE PHOSPHATASE 104 U/L (46-116); BUN 13 mg/dl (9-23); CHLORIDE 101 mmol/L (98-107); CHOLESTEROL 150 mg/dL (<200); GAMMA GLUTAMYL TRANSPEPTIDASE 12 U/L (0-73); LDL CHOLESTEROL 94 mg/dL (9-159); POTASSIUM 3.6 mmol/L (3.4-5.1); T3 UPTAKE 30.5 % (22.4-36.7); THYROXINE (T4) TOTAL 11.5 ug/dl (4.5-10.9); TOTAL PROTEIN 6.7 gm/dL (6.0-8.0); TRIGLYCERIDES 117 mg/dl (<150); URIC ACID 5.2 mg/dL (3.1-7.8)
[2024-09-27 10:44] LABS: SGPT/ALT < 7 U/L (5-49)
[2024-09-27 11:29] LABS: BACTERIA TRACE; EPITHELIAL CELLS 0-2; WBC 0-2 wbc/hpf (0-5)
[2024-09-27 13:28] LABS: VITAMIN D, 25-HYDROXY 27.5 ng/mL (30-100)
[2024-09-28 10:07] LABS: ANTI-DSDNA ANTIBODIES <1 IU/mL (0-9)
== END | disposition home or self-care (01) ==
LOC: LAB 01:50 → MAMMO 10:30 → LAB 10:30
PROVIDERS: ATTEND Family Medicine
DX: Z12.31 Encounter for screening mammogram for malignant neoplasm of breast (principal); R92.323 Mammographic fibroglandular density, bilateral breasts; E78.5 Hyperlipidemia, unspecified; E11.9 Type 2 diabetes mellitus without complications; E55.9 Vitamin D deficiency, unspecified; R79.89 Other specified abnormal findings of blood chemistry; R53.83 Other fatigue

== ENCOUNTER → 2025-04-03 | Outpatient (CLI) | payer OTHER ==
[~2025-04-03] MED LIST changes: +IOHEXOL 300 MG/ML 100 ML VIAL IV ONE; +IOHEXOL 300 MG/ML 100 ML VIAL ONE
[2025-04-03 07:51] LABS: BASO # 0.1 10*3/uL (0.0-0.1); BASO % 0.9 % (0.0-1.0); EOS # 0.2 10*3/uL (0.0-0.4); EOS % 2.2 % (1.0-4.0); MEAN CELL VOLUME 97.0 fl (81.0-99.0); MEAN CORPUSCULAR HGB 32.2 pg (27.0-31.0); MEAN PLATELET VOLUME 9.9 fl (9.6-12.3); MONO # 0.5 10*3/uL (0.1-1.0); MONO % 7.3 % (3.0-9.0); NEUT # 4.1 10*3/uL (2.3-7.9); NEUT % 60.7 % (47.0-73.0); NUCLEATED RED BLOOD CELL 0.0 % (0.0-0.0); NUCLEATED RED BLOOD CELL 0.0 10*3/uL (0.0-0.0); PLATELET COUNT AUTOMATED 208 10*3/uL (130-400); RED CELL DISTRI WIDTH 13.0 % (0-14.5); RETICULOCYTE % 1.74 % (0.50-2.50)
[2025-04-03 07:59] LABS: BILIRUBIN Negative (Negative); BLOOD Negative (Negative); CLARITY Clear (Clear); COLOR Yellow (Yellow); KETONE Negative (Negative); LEUKO ESTERASE Trace (Negative); NITRITE Negative (Negative); PH 5.5 (4.5-8.0); SPECIFIC GRAVITY 1.015 (1.001-1.030); UROBILINOGEN 0.2 E.U./dl (0.0-1.0)
[2025-04-03 08:22] LABS: BACTERIA TRACE; RBC 0-2 rbc/hpf (0-2)
[2025-04-03 08:58] LABS: BUN 13 mg/dl (9-23); GAMMA GLUTAMYL TRANSFERASE 10 U/L (0-38); LDL CHOLESTEROL 93 mg/dL (9-159); SGPT/ALT 9 U/L (5-49); T3 UPTAKE 28.0 % (22.4-36.7); THYROXINE (T4) TOTAL 11.4 ug/dl (4.5-10.9)
[2025-04-03 09:00] LABS: VITAMIN D, 25-HYDROXY 31.9 ng/mL (30-100)
== END | disposition home or self-care (01) ==
LOC: LAB 01:54 → CT 08:00
PROVIDERS: ATTEND Family Medicine
DX: I71.43 Infrarenal abdominal aortic aneurysm, without rupture (principal); D35.00 Benign neoplasm of unspecified adrenal gland; R79.89 Other specified abnormal findings of blood chemistry; E78.5 Hyperlipidemia, unspecified; R53.83 Other fatigue; E55.9 Vitamin D deficiency, unspecified; K57.30 Diverticulosis of large intestine without perforation or abscess without bleeding; I70.0 Atherosclerosis of aorta; M47.816 Spondylosis without myelopathy or radiculopathy, lumbar region